=== PATIENT | female | born 1935 | race Caucasian/White ===

== ENCOUNTER 2016-12-06 14:04 | Inpatient (IN) ==
--- NOTE | 2016-12-06 15:15 | EKG Report ---
Test Performed on : 12/06/2016 2:35:07 PM Test Reason : CAD Blood Pressure : / mmHG Vent. Rate : 090 BPM Atrial Rate : 277 BPM P-R Int : 000 ms QRS Dur : 084 ms QT Int : 376 ms P-R-T Axes : 000 012 141 degrees QTc Int : 459 ms Atrial fibrillation. Moderate voltage criteria for LVH, may be normal variant ST \T\ T wave abnormality, consider lateral ischemia Abnormal ECG When compared with ECG of 25-NOV-2016 11:44, Significant changes have occurred Unconfirmed Result
--- NOTE | 2016-12-06 15:31 | Diag Imaging Result Doc PS360 ---
CHEST-1 VIEW - 12/06/2016 INDICATION: fall TECHNIQUE: COMPARISON: 11/25/2016 FINDINGS: The lungs are normally expanded and clear. Heart size and mediastinal contours are normal. No pneumothorax or pleural effusion. IMPRESSION: Negative exam. Electronically signed by Karri Smith 12/06/2016 3:28 PM
--- NOTE | 2016-12-06 15:36 | ED EKG INTERP ---
This chart was entered by Zaida Alcala Scribe, acting as scribe for Dann Li MD. EKG Interpretation - EKG Time of EKG reading by physician:: 14:35 EKG Read and Signed by:: Dann Li EKG Interpretation (*Must complete 3 of following elements*): Abnormal Rate: 90 Rhythm: atrial fibrillation Boyd: normal QRS: LVH (moderate voltage criteria for LVH, may be normal variant) DE Interval: normal ST Wave: non-specific ST changes (ST & T wave abnormality, consider lateral ischemia) Attestation - Physician/ BRAYAN Attestation Patient care was provided by Advanced Practice Provider:: No The physician spent face to face time with patient:: Yes Advanced Practice Provider documentation review:: Supervising physician onsite and consulted in the evaluation and care of this patient. The physician did have a face to face encounter with the patient. This chart was documented by the indicated scribe, (Zaida Alcala Scribe) and accurately reflects the services I performed and decisions made by me, Dann Li MD, as attested by the provider's signature.
[2016-12-06 16:04] LABS: MANUAL DIFF NEEDED? NO
[2016-12-06 16:17] LABS: BASO% 0.2 % (0.0-0.8); EOS# 0.08 X1000 (0.0-0.7); EOS% 0.6 % (0.0-10.0); HEMATOCRIT 42.9 % (37.0-47.0); HEMOGLOBIN 14.8 g/dL (12.0-16.0); IMM GRAN# 0.03 X1000 (0.0-0.04); IMM GRAN% 0.2 % (0.0-0.5); LYMPH# 1.36 X1000 (1.2-3.4); LYMPH% 9.8 % (20.5-51.1); MCH 32.8 PG (27-31); MCHC 34.5 g/dL (33-37); MCV 95.1 FL (81-99); MONO# 1.01 X1000 (0.11-0.59); MONO% 7.3 % (1.7-9.3); MPV 10.9 FL (7.4-10.4); NEUT% 81.9 % (42.2-75.2); PLT 284 X1000 (130-400); RBC 4.51 XMIL (4.2-5.4)
[2016-12-06 17:09] LABS: ALBUMIN 4.3 g/dL (3.5-5.0); CALCIUM 9.7 mg/dL (8.8-10.2); MAGNESIUM 2.2 mg/dL (1.5-2.7); TOTAL BILIRUBIN 0.94 mg/dL (0.20-1.00); TOTAL PROTEIN 7.8 g/dL (6.3-8.3)
--- NOTE | 2016-12-06 17:54 | Diag Imaging Result Doc PS360 ---
EXAM: CT HEAD/C-SPINE W/O CONTRAST INDICATION: Fall TECHNIQUE: Dose reduction protocol was used. COMPARISON: CT head dated 11/25/2016 FINDINGS: Head: There are a few stable chronic lacunar infarcts in the periventricular white matter on the right. There is focal encephalomalacia involving the left occipital lobe, stable. There is no definite acute infarct given the limited sensitivity of CT versus MRI. There is no discrete intracranial mass, mass effect, or intracranial hemorrhage. The surrounding soft tissues are essentially unremarkable. The calvaria is intact. C-spine: There is degenerative facet arthropathy at multiple cervical levels. This causing some degree of foraminal narrowing at multiple levels. The central canal appears to be grossly patent. There are a few small endplate marginal osteophytes. Otherwise, there is no discrete fracture, subluxation, or intrinsic osseous lesion. The surrounding soft tissues are essentially unremarkable. IMPRESSION: 1.Stable chronic changes but no evidence of acute intracranial pathology. 2.Multilevel degenerative arthropathy throughout the cervical spine but no evidence of fracture or other definite acute C-spine injury. Electronically signed by Chu Patel 12/06/2016 5:52 PM
[2016-12-06] MEDS ORDERED: NS 1,000 ML IV ONE (19:44)
[2016-12-06] MEDS ORDERED: LEVAQUIN 750 MG/D5W 750 MG/150 ML IVPB IV ONE (19:52)
[2016-12-06 20:31] LABS: URINE SOURCE CATH
[2016-12-06 20:44] LABS: BILIRUBIN URINE NEGATIVE (NEGATIVE); BLOOD URINE NEGATIVE (NEGATIVE); COLOR YELLOW; GLUCOSE URINE NEGATIVE (NEGATIVE); LEUKOCYTES URINE LARGE (NEGATIVE); NITRITE URINE NEGATIVE (NEGATIVE); PH URINE 5.5; PROTEIN URINE TRACE mg/dL (NEGATIVE); SP GRAVITY URINE 1.016; TURBIDITY URINE HAZY (CLEAR); UROBILINOGEN URINE NORMAL (NORMAL)
[2016-12-06 20:55] LABS: UR EPITHELIAL CELLS >10 /HPF (<10); URINE BACTERIA NEGATIVE /HPF; URINE MICRO REVIEW NEEDED? YES; URINE RBC <10 /HPF (<10)
[2016-12-06 21:01] LABS: URINE CASTS GRANULAR PRESENT; URINE WBC TNTC /HPF (<10)
--- NOTE | 2016-12-06 22:30 | PROVIDER DOCUMENTATION ---
This chart was entered by Zaida Alcala Scribe, acting as scribe for Jeffrey Flanagan DO. HPI-Neurological Disorder - General Stated Complaint: NOT FEELING GOOD, AMS, DX WITH UTI Time Seen by Provider: 12/06/16 14:15 Source: EMS Allergies/Adverse Reactions: Patient Allergies Allergy/AdvReac Type Severity Reaction Status Date / Time No Known Allergies Allergy Verified 11/25/16 12:08 Home Medications: Home Medication List Medication Instructions Recorded Confirmed Last Taken Type Aspirin 81 mg PO DAILY 03/15/13 12/06/16 12/06/16 History Digoxin [Lanoxin] 125 microgm PO DIRECTED 03/15/13 12/06/16 12/06/16 History Levothyroxine [Synthroid] 50 microgm PO DAILY 03/15/13 12/06/16 12/06/16 History Lisinopril [Zestril] 20 mg PO DAILY 03/15/13 12/06/16 12/06/16 History Metoprolol [Lopressor] 100 mg PO BID 03/15/13 12/06/16 12/05/16 History Warfarin [Coumadin] 2.5 mg PO QPM 03/15/13 12/06/16 12/05/16 History Escitalopram Oxalate [Lexapro] 20 mg PO DAILY 11/25/16 12/06/16 12/06/16 History Furosemide 40 mg PO DIRECTED 11/25/16 12/06/16 12/06/16 History Potassium Chloride [Klor-Con 8] 8 meq PO DIRECTED 11/25/16 12/06/16 12/06/16 History ROSUVAstatin [Crestor] 20 mg PO DAILY 11/25/16 12/06/16 12/05/16 History Spironolactone 25 mg PO DIRECTED 11/25/16 12/06/16 12/06/16 History Meclizine HCl [Antivert] 25 mg PO DIRECTED 12/06/16 12/06/16 12/06/16 History Potassium Chloride 8 meq PO DIRECTED 12/06/16 12/06/16 12/06/16 History - History of Present Illness-Neuro Nature of Presenting Problem: Patient is a 81 year old female who presents in the ED via EMS with complaints of altered mental status. EMS states patient's family called EMS due to patient' s increasing weakness and altered mental status, and states patient fell today in the bathroom. EMS also states the fall was not witnessed, and states patient was in a wheelchair upon their arrival so they are unsure if patient lost consciousness. EMS reports patient was in the ED one week ago and diagnosed with a UTI, and reports family stated patient had completed her antibiotics. EMS also reports patient has a history of a CVA twenty years ago and an [place] but unknown when, and reports patient's family stated patient is normally able to stand with assistance but has been " weight" today. EMS states patient's daughter stated patient has had intermittent episodes over the last three months in which patient "seems catatonic and won't respond to them," and states patient's blood pressure was 96/62 prior to arrival in ED. EMS also states patient's states patient has had a runny nose recently, but states patient "has never had a cold before." Headache Location: denies: frontal, temporal, occipital, parietal, global, other Onset/Duration: reports: unsure Timing: reports: still present Character of Altered Mental Status: reports: disoriented, decreased responsiveness Any recent trauma/injury?: reports: none. denies: minor, major, to head, to neck, other Character of Deficits: reports: decreased ability to stand. denies: new weakness, altered sensation, vision problem/glaucoma, impaired speech, impaired swallowing, decreased ability to walk, falling New weakness or altered sensation location:: reports: none. denies: RUE, RLE, LUE, LLE, right facial, left facial, general (diffuse), ascending, other Cognitive Baseline: alert, oriented x3 Similar Symptoms Previously?: No Recently seen or treated by another doctor?: No Review of Systems - Adult - REVIEW OF SYSTEMS - ADULT Constitutional: reports: no symptoms reported Eyes: reports: no symptoms reported Ears, Nose, Mouth & Throat: reports: no symptoms reported Cardiovascular: reports: no symptoms reported Respiratory: reports: no symptoms reported Gastrointestinal: reports: no symptoms reported Genitourinary: reports: no symptoms reported Musculoskeletal: reports: no symptoms reported Integumentary: reports: no symptoms reported Neurological: reports: see HPI, other (altered mental status) Psychiatric: reports: no symptoms reported Endocrine: reports: no symptoms reported Hematologic/Lymphatic: reports: no symptoms reported Allergic/Immunologic: reports: no symptoms reported All Other Systems: Reviewed and Negative Past History - Adult - PAST MEDICAL HISTORY-ADULT Review of Records: reports: Nursing Assessment Review, Medications Reviewed Major Childhood Illnesses: reports: denies history Cardiovascular: reports: [place] Respiratory: reports: denies history Gastrointestinal: reports: denies history Obstetrical/Gynecological: reports: denies history Genitourinary: reports: denies history Musculoskeletal: reports: denies history Neurological: reports: CVA Psychiatric: reports: denies history Endocrine/Immune: reports: denies history Other Conditions: reports: denies history - PRIOR SURGERIES/PROCEDURES Surgical/Procedure History: reports: cholecystectomy, hysterectomy, BTL, other ( breast bx) - IMMUNIZATION STATUS Childhood Immunizations: See Nurse Assessment Flu Vaccine: See Nurse Assessment - FAMILY HISTORY Family History: reviewed, not pertinent - SOCIAL HISTORY Smoking: denies Substance Use: none/never Alcohol Use Frequency: never Living Situation: family Physical Exam- Neurological - Physical Exam-Neuro Initial Vital Signs Reviewed: Yes General Appearance: alert, no apparent distress Eye Exam: bilateral eye: normal inspection, PERRL, EOMI HENMT: normocephalic/atraumatic, moist mucous membranes Head Injury: no evidence of injury Neck: non-tender, full range of motion, supple, normal inspection Respiratory: chest non-tender, lungs clear, normal breath sounds, no pleuratic chest pain, no respiratory distress, no accessory muscle use Cardiovascular: normal peripheral pulses, regular rate, rhythm, no edema, no gallop, no JVD, no murmur Abdominal Exam: soft, no organomegaly, no pulsatile mass Lymphatic: no adenopathy Extremity: normal range of motion, non-tender, normal gait, normal inspection, no pedal edema, no calf tenderness, normal capillary refill, 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 Exam: normal hearing, PERRL, other (obeys commands) Coordination/Gait: other (obeys commands) Motor/Sensory: no motor deficit, no sensory deficit, no pronator drift, other ( generalized weakness) Neurologic: no motor/sensory deficits, other (generalized weakness) Integumentary: normal color, normal turgor, warm/dry, other Psych/Mental Status: other (oriented to self) - Glascow Coma Scale Best Eye Response: (4) open spontaneously Best Verbal Response: (5) oriented Best Motor Response: (6) obeys commands Total Glascow Score: 15 Progress - PLAN OF CARE/RESULTS Progress/Plan/Lab Results: Vital Signs - 8 hr 12/06/16 14:48 Temperature 98.3 F Pulse Rate 68 Respiratory Rate 17 Blood Pressure 84/30 O2 Sat by Pulse Oximetry 97 Laboratory Results - last 24 hr 12/06/16 12/06/16 12/06/16 15:38 15:38 15:38 WBC 13.88 H RBC 4.51 Hgb 14.8 Hct 42.9 MCV 95.1 MCH 32.8 H MCHC 34.5 RDW Std Deviation 13.7 Plt Count 284 MPV 10.9 H Immature Gran % (Auto) 0.2 Neut % (Auto) 81.9 H Lymph % (Auto) 9.8 L Bath % (Auto) 7.3 Eos % (Auto) 0.6 Baso % (Auto) 0.2 Immature Gran # (Auto) 0.03 Neut # (Auto) 11.37 H Lymph # (Auto) 1.36 Bath # (Auto) 1.01 H Eos # (Auto) 0.08 Baso # (Auto) 0.03 Sodium 140 Potassium 5.0 Chloride 102 Carbon Dioxide 24 L Anion Gap 14 BUN 33 H Creatinine 1.8 H Estimated GFR/1.73 m2 27 BUN/Creatinine Ratio 18 Glucose 115 H POC Glucose Calculated Osmolality 288 Calcium 9.7 Phosphorus 3.9 Magnesium 2.2 Total Bilirubin 0.94 AST 37 H ALT 32 Alkaline Phosphatase 65 Troponin T 0.013 [id number]-C-Ffvnqrcvwwj Pept Total Protein 7.8 Albumin 4.3 Globulin 3.5 Albumin/Globulin Ratio 1.2 Plasma Lactate Urine Source Urine Color Urine Turbidity Urine pH Ur Specific [place] Urine Protein Ur Glucose (Stick) Ur Ketones (Stick) Urine Blood Urine Nitrite Urine Bilirubin Urobilinogen Dipstick Urine Leukocytes Urine WBC (Auto) Urine RBC (Auto) U Epithel Cells (Auto) Urine Bacteria (Auto) Urine Crystals Small Round Cells Urine Casts Urine Yeast-like Cells 12/06/16 12/06/16 12/06/16 15:38 15:59 20:07 WBC RBC Hgb Hct MCV MCH MCHC RDW Std Deviation Plt Count MPV Immature Gran % (Auto) Neut % (Auto) Lymph % (Auto) Bath % (Auto) Eos % (Auto) Baso % (Auto) Immature Gran # (Auto) Neut # (Auto) Lymph # (Auto) Bath # (Auto) Eos # (Auto) Baso # (Auto) Sodium Potassium Chloride Carbon Dioxide Anion Gap BUN Creatinine Estimated GFR/1.73 m2 BUN/Creatinine Ratio Glucose POC Glucose 110 H Calculated Osmolality Calcium Phosphorus Magnesium Total Bilirubin AST ALT Alkaline Phosphatase Troponin T Fmh-D-Vzrcqgmddop Pept Total Protein Albumin Globulin Albumin/Globulin Ratio Plasma Lactate 2.4 H 1.5 Urine Source Urine Color Urine Turbidity Urine pH Ur Specific [place] Urine Protein Ur Glucose (Stick) Ur Ketones (Stick) Urine Blood Urine Nitrite Urine Bilirubin Urobilinogen Dipstick Urine Leukocytes Urine WBC (Auto) Urine RBC (Auto) U Epithel Cells (Auto) Urine Bacteria (Auto) Urine Crystals Small Round Cells Urine Casts Urine Yeast-like Cells 12/06/16 12/06/16 12/06/16 20:07 20:07 20:30 WBC RBC Hgb Hct MCV MCH MCHC RDW Std Deviation Plt Count MPV Immature Gran % (Auto) Neut % (Auto) Lymph % (Auto) Bath % (Auto) Eos % (Auto) Baso % (Auto) Immature Gran # (Auto) Neut # (Auto) Lymph # (Auto) Bath # (Auto) Eos # (Auto) Baso # (Auto) Sodium Potassium Chloride Carbon Dioxide Anion Gap BUN Creatinine Estimated GFR/1.73 m2 BUN/Creatinine Ratio Glucose POC Glucose Calculated Osmolality Calcium Phosphorus Magnesium Total Bilirubin AST ALT Alkaline Phosphatase Troponin T < 0.010 Tar-U-Repwejpssce Pept 4854 H Total Protein Albumin Globulin Albumin/Globulin Ratio Plasma Lactate Urine Source CATH Urine Color YELLOW Urine Turbidity HAZY Urine pH 5.5 Ur Specific [place] 1.016 Urine Protein TRACE A Ur Glucose (Stick) NEGATIVE Ur Ketones (Stick) NEGATIVE Urine Blood NEGATIVE Urine Nitrite NEGATIVE Urine Bilirubin NEGATIVE Urobilinogen Dipstick NORMAL Urine Leukocytes LARGE A Urine WBC (Auto) TNTC A Urine RBC (Auto) <10 U Epithel Cells (Auto) >10 A Urine Bacteria (Auto) NEGATIVE Urine Crystals Not Reportable Small Round Cells Not Reportable Urine Casts GRANULAR PRESENT Urine Yeast-like Cells PRESENT Orders Category Date Time Status CT HEAD/C-SPINE W/O CONTRAST [CT] Stat Exams 12/06/16 14:21 Completed cxr [CHEST-1 VIEW] [RAD] Stat Exams 12/06/16 14:18 Completed BLOOD CULTURE [BLDCUL] Stat Lab 12/06/16 20:04 Results BNP [PRO B-NATRIURETIC PEPTIDE] Stat Lab 12/06/16 20:07 Completed CBC WITH DIFF [HEME] Stat Lab 12/06/16 15:38 Completed COMPREHENSIVE METABOLIC PANEL [CHEM] Stat Lab 12/06/16 15:38 Completed LACTATE, PLASMA [CHEM] Stat Lab 12/06/16 15:38 Completed LACTATE, PLASMA [CHEM] Stat Lab 12/06/16 20:07 Completed MAGNESIUM [CHEM] Stat Lab 12/06/16 15:38 Completed PHOSPHORUS [CHEM] Stat Lab 12/06/16 15:38 Completed TROPONIN T Stat Lab 12/06/16 15:38 Completed TROPONIN T Stat Lab 12/06/16 20:07 Completed URINALYSIS [URINALYSIS] Stat Lab 12/06/16 20:30 Completed URINE CULTURE [RM] Routine Lab 12/06/16 20:32 Received URINE MANUAL MICROSCOPIC [URINALYSIS] Stat Lab 12/06/16 20:30 Completed 0.9% Sodium Chloride Inj [Ns] 1,000 ml Med 12/06/16 19:44 Discontinued IV 999 mls/hr Levofloxacin 750 mg/D5w [Levaquin 750 mg/D5w] Med 12/06/16 19:52 Discontinued 750 mg in 150 ml IV NOW EKG [EKG] Stat Ther 12/06/16 14:18 Draft Spoke with hospitalist and he accepted the patient. Result Diagrams: 12/06/16 15:38 12/06/16 15:38 Departure - Departure Date of Disposition Decision: 12/06/16 Time of Disposition Decision: 22:28 DIAGNOSIS: Sepsis Disposition: ADMITTED INPATIENT 09 Certified Medical Emergency: Emergent Condition: Serious - Critical Care Note This patient required my direct & personal management of CC.: No Attestation - Physician/ BRAYAN Attestation Patient care was provided by Advanced Practice Provider:: No The physician spent face to face time with patient:: Yes Advanced Practice Provider documentation review:: Supervising physician onsite and consulted in the evaluation and care of this patient. The physician did have a face to face encounter with the patient. This chart was documented by the indicated scribe, (Zaida Alcala Scribe) and accurately reflects the services I performed and decisions made by me, Jeffrey Flanagan DO, as attested by the provider's signature.
[2016-12-07] MEDS ORDERED: ZOFRAN IV PRN (00:32)
[2016-12-07] MEDS ORDERED: NS 1,000 ML IV SCH ×2 (00:50→08:24)
[2016-12-07] MEDS ORDERED: CALMOSEPTINE OINTMENT TOP PRN (01:34)
[2016-12-07] MEDS: TYLENOL PO PRN ×2 (02:25→16:33)
[2016-12-07 05:07] LABS: MANUAL DIFF NEEDED? NO
[2016-12-07 05:20] LABS: BASO% 0.1 % (0.0-0.8); EOS# 0.06 X1000 (0.0-0.7); EOS% 0.5 % (0.0-10.0); HEMATOCRIT 35.1 % (37.0-47.0); HEMOGLOBIN 12.1 g/dL (12.0-16.0); IMM GRAN# 0.02 X1000 (0.0-0.04); IMM GRAN% 0.2 % (0.0-0.5); LYMPH# 1.63 X1000 (1.2-3.4); LYMPH% 14.6 % (20.5-51.1); MCH 32.8 PG (27-31); MCHC 34.5 g/dL (33-37); MCV 95.1 FL (81-99); MONO# 1.34 X1000 (0.11-0.59); MPV 10.6 FL (7.4-10.4); NEUT% 72.6 % (42.2-75.2); PLT 202 X1000 (130-400); RBC 3.69 XMIL (4.2-5.4)
[2016-12-07 05:24] LABS: INR 3.15; PROTIME 35.6 Seconds (9.2-11.7)
[2016-12-07 05:32] LABS: ALBUMIN 3.3 g/dL (3.5-5.0); POTASSIUM 4.3 mmol/L (3.5-5.1); TOTAL BILIRUBIN 0.52 mg/dL (0.20-1.00)
[2016-12-07] MEDS: SYNTHROID PO SCH (06:24)
[2016-12-07] MEDS ORDERED: LOPRESSOR PO SCH (09:00)
--- NOTE | 2016-12-07 09:38 | HISTORY AND PHYSICAL ---
CHIEF COMPLAINT: General weakness. HISTORY OF PRESENT ILLNESS: The patient is a 81-year-old female, who has a history of atrial fibrillation, CAD, remote CVA, and questionable Parkinson disease and questionable CHF, presented in the ER via EMS for worsening weakness and altered mental status at home. Per family, for the last 6 months or so, patient has increased weakness and normally, she can sit in a wheelchair for moment and with the help, she can go to the bathroom. But today after her put her up in the wheelchair, and she slumped over for about 35 minutes to 40 minutes or so, and there is simply much worse than her usual status. She was able to mumble some words, but it is hard to understand, and she, herself, could not raise her head. So he called EMS for help. Per EMS, the patient's blood pressure was around 96/62, prior to arrival to the ER. She has been in [facility] ER a week ago for UTI, and was discharged home with Macrobid per family, and she already finished the antibiotic. I could not get much history from the patient. Most of the history is from the and her daughter, and they did not notice that the patient have any fevers, chills, nausea, vomiting, or diarrhea. She most of the times lay in the bed, and she can eat her meals with help, but cannot baths, cannot go to the bathroom on her own, and being in the ER, patient was noted to still be hypotensive. The blood pressure was 84/30, and her first lactic acid was 2.4, and the patient was given fluid, and treated the UTI in the ER. So patient will be admitted in the hospital for further treatment and waiting for the culture results. PAST MEDICAL HISTORY: AFib, CAD, CVA, hypertension, hypothyroidism, hyperlipidemia. PAST SURGICAL HISTORY: Cholecystectomy, hysterectomy, BTL. FAMILY HISTORY: Reviewed, not pertinent. SOCIAL HISTORY: Denies smoking. Denies drinking, and living with her . ALLERGIES: NKDA. HOME MEDICATIONS: Aspirin 81 mg daily, digoxin 125 mcg on Saturday, Saturday, Saturday, and Saturday, Lexapro 20 mg p.o. daily, furosemide 40 mg p.o. Saturday, Saturday, Saturday, Levothyroxine 50 mcg daily, lisinopril 20 mg daily, Antivert 20 mg by mouth Saturday, Saturday, and Saturday, metoprolol 100 mg b.i.d., potassium chloride 8 mEq p.o. on Saturday, Saturday, and Saturday, Crestor 20 mg p.o. daily, spironolactone 20 mg on Saturday, Saturday, and Saturday, Coumadin 2.5 mg p.o. q.p.m. REVIEW OF SYSTEMS: A 10-point review of system obtained. Please refer to HPI for pertinent positives and negatives. PHYSICAL EXAMINATION: VITAL SIGNS: Temperature 98.3 degrees, pulse rate is 68, respiratory rate 17, blood pressure 84/30, O2 sat on 2 L 97%. GENERAL: Well-developed female laying on the bed and arousable, but looks pretty pale and tired. HEENT: Head normocephalic. Eyes - EOMI and PERRLA. Oral mucosa is dry. NECK: No JVD. No carotid bruit. CARDIOVASCULAR: Irregularly, irregular, and no murmur. Normal S1, S2. PULMONARY: Diminished throughout, but overall clear to auscultate auscultation bilaterally. No wheezing. No rales. ABDOMINAL: Soft, nontender, nondistended. Positive bowel sounds. EXTREMITIES: No edema. Pulses present. SKIN: No rash. No cyanosis. NEURO: Alert, awake, and oriented to person. Upper extremities have good strength. Lower extremities seems to have good strength, but the patient cannot follow the commands very well. LABS: WBC 13.88, H and H 14.8 and 42.9, platelet is 284. Chemistry: Sodium 140, potassium 5.0, chloride 102, bicarb 24, BUN 33, creatinine 1.8. Glucose 115. Liver enzymes: Within normal limits. Troponin within normal limits. Lactic acid first value 2.4. The repeat values in four hours is 1.5. BNP 4854. UA shows gravity is 1.016, and large leukocyte, less than 10 RBC, more than 10 epithelial cells. EKG shows atrial fibrillation. Heart rate 90, no ST-T abnormalities. Chest x-ray: No acute findings. Head CT: Stable chronic changes, but no evidence of acute intracranial pathology. Multilevel degenerative arthropathy throughout the cervical spine, but no evidence of fracture or other definite acute C-spine injury. ASSESSMENT AND PLAN: 1. Urinary tract infection. 2. Altered mental status. 3. General weakness. 4. Hypotension. 5. Atrial fibrillation. Given the patient's presentation, I think likely her mental status change is probably a little worsening than her baseline and likely reason is probably from their UTI, and we are going to admit the patient and give her hydration, monitor her blood pressure, and continued antibiotics treating for UTI and follow on urine culture and blood culture. We also consulted PT and to assist the patient, and to evaluate and assess the patient to see whether she is a good candidate for some rehab. We will resume her other medicines, and to treat atrial fibrillation, hypothyroidism, and cholesterol. cc: MD Kike Petty Jr, MD
[2016-12-07] MEDS: CRESTOR PO SCH (10:01)
[2016-12-07] MEDS: ASPIRIN PO SCH (10:01)
[2016-12-07] MEDS: NS 1,000 ML IV SCH ×2 (10:01→22:15)
[2016-12-07] MEDS: LEXAPRO PO SCH (10:01)
[2016-12-07] MEDS: LANOXIN PO SCH (10:01)
[2016-12-07] MEDS: LEVAQUIN 250 MG/D5W 250 MG/50 ML IVPB IV SCH (10:10)
--- NOTE | 2016-12-07 19:01 | PROGRESS NOTE ---
DATE: 12/07/2016 SUBJECTIVE: A 81-year-old white female, was admitted to the hospital last night for altered mental status, hypotension, urinary tract infection and azotemia. The patient also had a fall and sustained bruises on the right knee. The patient was examined at the bedside with . According to him, she is bedridden pretty much. She was seen in the emergency room a week ago. Sent home on antibiotics. The patient is not able to ambulate bedridden from the previous stroke. REVIEW OF SYSTEMS: None reported and the patient is also demented. PAST MEDICAL HISTORY: Reviewed. PAST SURGICAL HISTORY: Reviewed. MEDICATIONS: Medicines were reviewed. PHYSICAL EXAMINATION: Vital Signs: Afebrile. Vitals are stable. 2 L nasal cannula 98%. HEENT: Examination within normal limits. Neck: Supple. Chest is clear. Heart sounds irregular. Abdomen: Belly is soft. Midline abdominal scar present. In diapers. No skin breaks over the sacral area. Extremities: No peripheral edema. Extremities: Skin bruises noted over both knees. Neurologic: No obvious neurological deficits. INVESTIGATIONS: CBC: White cell count 11, hematocrit 35, platelets 202,000. PT 35, INR 3.15, SMA 7, sodium 140, potassium 4.3, chloride 106, BUN 39, creatinine 2.0. Glucose 98. LFTs were normal. Microbiology: Urine cultures so far negative. Blood cultures are negative. ASSESSMENT AND PLAN: 1. Altered mental status due to metabolic encephalopathy. 2. Chronic atrial fibrillation and currently on Lanoxin. 3. Atrial Fibrillation metoprolol 100 p.o. b.i.d., lisinopril 20 daily. 4. Hypotension. We will hold the lisinopril and metoprolol. Continue IV fluids. Follow up on SMA 7. 5. Hypothyroidism on Synthroid. 6. Hyperlipidemia, on Crestor. Reactive depression on Lexapro. 7. Urinary tract infection on IV Levaquin 250 once daily. 8. Follow up on the laboratory workup in the morning. Discussed with the patient's at bedside. LEVEL OF DOCUMENTATION: Thirty-five minutes. cc: MD Kike Caruso Jr, MD MTDD
[2016-12-07] MEDS ORDERED: COUMADIN PO SCH (21:00)
[2016-12-08 05:52] LABS: HEMATOCRIT 31.5 % (37.0-47.0); HEMOGLOBIN 10.8 g/dL (12.0-16.0); MCH 33.5 PG (27-31); MCHC 34.3 g/dL (33-37); MCV 97.8 FL (81-99); MPV 10.7 FL (7.4-10.4); RBC 3.22 XMIL (4.2-5.4)
[2016-12-08 06:17] LABS: CALCIUM 8.9 mg/dL (8.8-10.2); POTASSIUM 4.2 mmol/L (3.5-5.1)
[2016-12-08] MEDS: SYNTHROID PO SCH (06:29)
[2016-12-08] MEDS: CRESTOR PO SCH (09:16)
[2016-12-08] MEDS: ASPIRIN PO SCH (09:16)
[2016-12-08] MEDS: LEVAQUIN 250 MG/D5W 250 MG/50 ML IVPB IV SCH (09:16)
[2016-12-08] MEDS: LEXAPRO PO SCH (09:16)
[2016-12-08] MEDS: NS 1,000 ML IV SCH ×2 (09:16→21:46)
[2016-12-08] MEDS: DIFLUCAN 100 MG/NS 100 MG/50 ML IVPB IV SCH (16:25)
--- NOTE | 2016-12-08 18:09 | PROGRESS NOTE ---
DATE: 12/08/2016 SUBJECTIVE: Ms. Odell 81-year-old white female patient admitted with altered mental status gradually decline in her health. The patient found to have UTI. The patient does have complex medical problems in the form of atrial fibrillation, coronary artery disease, CVA, hypertension, hypothyroidism and hyperlipidemia. Patient overall health was declining. As per family she had increasing weakness. She had recent UTI. Her oral intake was poor at home. Patient was hypotensive, brought to emergency room. Evaluated by ER physician. Admitted for further care. Her initial history, physical noted. OBJECTIVE: Vital signs: The patient vital signs reviewed. Neck: Supple. No JVD. Lungs: Bibasilar crepitation. Heart: S1 and S2 heard. Abdomen: Soft, globular. Bowel sounds present. ADMINISTRATIVE SALES ASSISTANT: Alert, awake. Uncooperative for detailed neurologic examination. LABORATORY DATA: Noted. Hemoglobin today was 10.8, hematocrit 31.5, platelet count 179,000, WBC count 8.92. Electrolytes fairly benign. BUN 26, creatinine 1.3. Patient's urine culture grew yeast. CT scan of the brain and cervical spine results reviewed. Her chest x-ray did not reveal any evidence of fluid overload. CONSIDERATION: UTI, acute kidney injury, altered mental status most likely metabolic encephalopathy, anemia of chronic disease, history of coronary artery disease, chronic atrial fibrillation, hypothyroidism on Synthroid. PLAN: Will continue current treatment. I am going to start the patient on Diflucan. Continue rest of the treatment. Physical therapy. Close observation. We will monitor her lab. Overall plan discussed at length with the patient and he is in agreement. cc: MD Kike Fernandez Jr, MD
[2016-12-09 05:37] LABS: HEMATOCRIT 31.1 % (37.0-47.0); HEMOGLOBIN 10.8 g/dL (12.0-16.0); MCH 33.9 PG (27-31); MCHC 34.7 g/dL (33-37); MCV 97.5 FL (81-99); MPV 10.7 FL (7.4-10.4); RBC 3.19 XMIL (4.2-5.4)
[2016-12-09 05:53] LABS: ALBUMIN 3.1 g/dL (3.5-5.0); CALCIUM 8.8 mg/dL (8.8-10.2); MAGNESIUM 1.6 mg/dL (1.5-2.7); POTASSIUM 3.9 mmol/L (3.5-5.1); TOTAL BILIRUBIN 0.72 mg/dL (0.20-1.00); TOTAL PROTEIN 5.6 g/dL (6.3-8.3)
[2016-12-09 06:00] LABS: INR 1.76; PROTIME 19.2 Seconds (9.2-11.7)
[2016-12-09] MEDS: SYNTHROID PO SCH (06:21)
[2016-12-09] MEDS: ASPIRIN PO SCH (09:31)
[2016-12-09] MEDS: LANOXIN PO SCH (09:31)
[2016-12-09] MEDS: LEXAPRO PO SCH (09:31)
[2016-12-09] MEDS: D5W + KCL 20 MEQ 1,000 ML IV SCH (10:00)
--- NOTE | 2016-12-09 15:43 | PROGRESS NOTE ---
DATE: 12/09/2016 SUBJECTIVE: Ms. Odell is doing fair. Oral intake is good. No fever or chills. No dysuria. No unusual cough or expectoration. The patient's urine grew yeast. I started her on Diflucan. I am holding her Crestor. We also stopped her Levaquin. No nausea or vomiting. ProTime was subtherapeutic. Going to increase Coumadin to 3 mg. OBJECTIVE: Vital signs: Noted. Neck: Supple. No JVD. Lungs: Bibasilar crepitations. Heart: S1 and S2 heard. Irregularly irregular. Abdomen: Soft, globular. Bowel sounds present. Extremities: Patient does have bruise mandie above the knee. 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 CONSIDERATION: Patient admitted with altered mental status and to have a UTI. She does have atrial fibrillation, anemia of chronic disease, coronary artery disease, hypothyroidism on Synthroid. PLAN: Overall plan discussed with the and he is in agreement. cc: MD Kike Fernandez Jr, MD
[2016-12-09] MEDS: DIFLUCAN 100 MG/NS 100 MG/50 ML IVPB IV SCH (16:11)
[2016-12-09] MEDS: COUMADIN PO SCH (20:42)
[2016-12-10] MEDS: D5W + KCL 20 MEQ 1,000 ML IV SCH ×3 (04:23→22:44)
[2016-12-10 05:09] LABS: HEMATOCRIT 32.4 % (37.0-47.0); HEMOGLOBIN 11.3 g/dL (12.0-16.0); MCH 33.7 PG (27-31); MCHC 34.9 g/dL (33-37); MCV 96.7 FL (81-99); MPV 10.6 FL (7.4-10.4); RBC 3.35 XMIL (4.2-5.4)
[2016-12-10 05:41] LABS: CALCIUM 9.1 mg/dL (8.8-10.2); POTASSIUM 3.9 mmol/L (3.5-5.1)
[2016-12-10] MEDS: SYNTHROID PO SCH (06:02)
[2016-12-10] MEDS: LEXAPRO PO SCH (08:19)
[2016-12-10] MEDS: ASPIRIN PO SCH (08:20)
[2016-12-10] MEDS: LANOXIN PO SCH (08:20)
--- NOTE | 2016-12-10 12:20 | PROGRESS NOTE ---
DATE: 12/10/2016 SUBJECTIVE: The patient says she still feels very weak. She is better than what she was previously but feels very tired. Blood pressure is better at 116/76, respirations 12, pulse 78, temp 98.1 degrees Fahrenheit, oxygen saturations 99%. When she first came in she was hypotensive with a blood pressure of 84/30. She did not running any fever during this time. Her white count was initially 13,880. White count today is 8,790. Creatinine initially was 1.8 and then on 12/07 went up to 2.0 with a BUN of 39. Her creatinine is better at 1.0 with a BUN of 14. Urinalysis showed WBCs too numerous to count. Her urine culture grew out yeast. She had been on Macrobid for a UTI prior to coming in the hospital and just did not get better. Her urine had grown E. coli and it was sensitive to all antibiotics tested, this is on 11/25/2016, and then the culture for this admission showed yeast. She is now on Diflucan 100 mg IV q.24 hours. She also has atrial fibrillation, hypothyroidism. OBJECTIVE: Vital signs: Blood pressure is much better 116/76, respirations 12, pulse 78, temp 98.1 degrees Fahrenheit. HEENT: Patient is normocephalic. EOMs intact. PERRLA. Throat clear. Lungs: Clear to auscultation and percussion without rhonchi, rales, or wheezes. Heart: Irregularly irregular without murmurs, gallops, or friction rubs. Abdomen: Soft. Active bowel sounds. No organomegaly or tenderness. Neurologic: Intact grossly. The patient looks very tired. Patient appears very weak. At this time she does not feel like she can make it at home. Physical therapy has come by once and that was 2 days ago. We will continue IV fluids. Have physical therapy today. We will get another urinalysis and check lab work again in the morning. Will try to get her stronger to go home. Certainly there has been improvement but she is not back to baseline. Blood cultures have been negative. ASSESSMENT: 1. Hypotension. 2. Urinary tract infection from yeast. 3. Atrial fibrillation. 4. Acute kidney injury, that improved. PLAN: Will. Give fluids as above and get physical therapy to see her. Will recheck lab. cc: Kike De Jesus Jr, MD
[2016-12-10 13:03] LABS: URINE SOURCE CATH
[2016-12-10 13:21] LABS: BILIRUBIN URINE NEGATIVE (NEGATIVE); BLOOD URINE NEGATIVE (NEGATIVE); COLOR YELLOW; GLUCOSE URINE NEGATIVE (NEGATIVE); LEUKOCYTES URINE LARGE (NEGATIVE); NITRITE URINE NEGATIVE (NEGATIVE); PH URINE 5.5; PROTEIN URINE NEGATIVE (NEGATIVE); SP GRAVITY URINE 1.003; TURBIDITY URINE HAZY (CLEAR); UROBILINOGEN URINE NORMAL (NORMAL)
[2016-12-10 13:23] LABS: UR EPITHELIAL CELLS <10 /HPF (<10); URINE BACTERIA 1+ /HPF; URINE CULTURE NEEDED? YES; URINE MICRO REVIEW NEEDED? YES; URINE RBC <10 /HPF (<10); URINE WBC TNTC /HPF (<10)
[2016-12-10 13:35] LABS: URINE CASTS NONE SEEN; URINE CRYSTALS NONE SEEN; URINE SMALL ROUND CELLS NONE SEEN
[2016-12-10] MEDS: TYLENOL PO PRN ×2 (15:32→22:43)
[2016-12-10] MEDS: DIFLUCAN 100 MG/NS 100 MG/50 ML IVPB IV SCH (16:06)
[2016-12-10] MEDS: COUMADIN PO SCH (22:06)
[2016-12-11] MEDS: D5W + KCL 20 MEQ 1,000 ML IV SCH ×2 (04:06→22:00)
[2016-12-11 06:48] LABS: MANUAL DIFF NEEDED? NO
[2016-12-11 06:50] LABS: BASO% 0.3 % (0.0-0.8); EOS# 0.32 X1000 (0.0-0.7); EOS% 4.7 % (0.0-10.0); HEMATOCRIT 33.6 % (37.0-47.0); HEMOGLOBIN 11.6 g/dL (12.0-16.0); IMM GRAN# 0.02 X1000 (0.0-0.04); IMM GRAN% 0.3 % (0.0-0.5); LYMPH# 1.35 X1000 (1.2-3.4); LYMPH% 19.7 % (20.5-51.1); MCH 33.2 PG (27-31); MCHC 34.5 g/dL (33-37); MCV 96.3 FL (81-99); MONO# 1.13 X1000 (0.11-0.59); MONO% 16.5 % (1.7-9.3); MPV 10.5 FL (7.4-10.4); NEUT% 58.5 % (42.2-75.2); PLT 161 X1000 (130-400); RBC 3.49 XMIL (4.2-5.4)
[2016-12-11] MEDS: SYNTHROID PO SCH (06:52)
[2016-12-11 07:09] LABS: CALCIUM 9.1 mg/dL (8.8-10.2); POTASSIUM 4.3 mmol/L (3.5-5.1)
[2016-12-11] MEDS: LANOXIN PO SCH (08:13)
[2016-12-11] MEDS: LEXAPRO PO SCH (08:13)
[2016-12-11] MEDS: ASPIRIN PO SCH (08:14)
--- NOTE | 2016-12-11 09:31 | PROGRESS NOTE ---
DATE: 12/11/2016 SUBJECTIVE: The patient has altered mental status. When I came in, the nurse was already working with her. She was not responding at that time. She said it had been going on for about 45 minutes, and she tried to sternal rub without much success. I checked her blood pressure which was stable. Checked a blood sugar which was 89. The patient initially did not want to talk with me. I finally used the sternal rub, and she did wake up with that on her examination. She did not want to talk, but finally did talk slightly, seems weak on the right side of her body. Had a stroke about 18 years ago with weakness on the left side of her body. OBJECTIVE: Vital signs: Blood pressure 126/63, respirations 16, pulse 61, temp 97.4 degrees Fahrenheit, O2 saturation was 99% on room air. HEENT: She has a little bit of a facial droop on the left side. She would not answer me about sensation on the left side versus the right side, when I tried to test her. Neck: Supple. Lungs: Clear to auscultation and percussion without rhonchi, rales, or wheezes. Heart: Irregularly irregular without murmurs, gallops, or friction rubs. Abdomen: Soft with active bowel sounds. No organomegaly or tenderness. Neurological: As above. 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 She has upgoing toes bilaterally. LABORATORY DATA: Her last INR was a little low at 1.76 on 12/09, before that, it was 3.15. Her urine still showed WBCs too numerous to count. We are awaiting cultures again. ASSESSMENT: 1. Hypotension, now resolved. 2. Urinary tract infection apparently from yeast, but has not responded yet to Diflucan. 3. Atrial fibrillation. 4. Acute kidney injury, improved. 5. Altered mental status with weakness on the right side consistent with possible cerebrovascular accident. PLAN: We will get neurological consultation. Will get CT scan of the head. Please see orders. cc: Kike De Jesus Jr, MD
[2016-12-11 09:53] LABS: PROTIME 33.8 Seconds (9.2-11.7)
--- NOTE | 2016-12-11 10:05 | Diag Imaging Result Doc PS360 ---
EXAM: CT HEAD W/O CONTRAST - 12/11/2016 HISTORY: poss stroke TECHNIQUE: Low-dose protocol COMPARISON: 12/06/2016 FINDINGS: There are atrophic changes similar to the previous exam. There are chronic ischemic changes, including old infarcts at the right periventricular/posterior basal ganglia region and left occipital lobe, similar to the previous exam there is no indication of recent infarct, although acute infarcts may not be immediately visible. There is no evidence of hemorrhage, mass effect, or midline shift. IMPRESSION: Stable exam compared to 12/06/2016. Atrophic changes and chronic ischemic changes. No visible acute intracranial abnormality. Electronically signed by Domingo Fisher 12/11/2016 10:03 AM
--- NOTE | 2016-12-11 11:57 | CONSULTATION ---
DATE OF CONSULTATION: 12/11/2016 REASON FOR CONSULTATION: Acute mental status change. Possible stroke. HISTORY OF PRESENT ILLNESS: This is a 81-year-old I believe right-handed female with history of remote stroke, atrial fibrillation on Coumadin, coronary disease and possible dementia, who has been admitted for a few days now for generalized weakness and urinary tract infection. History is from chart review and discussion with the . The patient is nonambulatory at baseline. She is able to sit in a wheelchair with some assistance and can go to the bathroom. Sometimes she sleeps all day and the doesn't try to wake her but will check on her intermittently. She was hypotensive with a blood pressure of 96/62; another one at one point was 84/30 and this was when she had come into the hospital. She is being treated for urinary tract infection from yeast with Diflucan. A second urine culture is pending. She also had acute kidney injury which has improved. Her INR was subtherapeutic on her home dose of Coumadin; therefore this was increased during her stay. This morning's INR was 3.0. says 18 years ago she had an acute stroke with left hemiplegia which resolved after getting the "clot busting" agent in the ED. She had no residuals. About 8-10 years ago she had a smaller stroke but he cannot recall any details. She had a mild heart attack while at rehab for this. This morning the nurse came in to give the patient her medications and found her poorly responsive. She tried several maneuvers to get the patient to respond, but none of this was successful. This did include deep sternal rub. Her blood pressure was stable. Her blood sugar was 89. Eventually the patient was able to wake up and finally did talk slightly, but there was some concern about some weakness possibly on the right side of her body. She was sent for a head CT that did not show any acute findings. PAST MEDICAL HISTORY: Remote stroke, Atrial fibrillation on Coumadin, coronary artery disease, hypertension, hyperlipidemia, hypothyroidism, cholecystectomy, hysterectomy, BTL. FAMILY HISTORY: noncontributory SOCIAL HISTORY: no smoking or alcohol. She lives with her . Immobile. ALLERGIES: No known drug allergies. HOME MEDICATIONS: Reviewed. She takes aspirin 81 mg daily as well as Coumadin. She was taking 2.5 mg p.o. q.p.m. amongst others. Currently her Coumadin dose is 3 mg p.o. q.p.m. and she is on Diflucan and Lexapro. REVIEW OF SYSTEMS: Unable to be obtained due to the patient's mental status. PHYSICAL EXAMINATION: Vital Signs: Afebrile, blood pressure 126/63, pulse 61, respirations 16, 99% on room air. General: Elderly female, supine in bed with eyes closed. HEENT: Unremarkable with the exception of some slight nasolabial fold flattening on the left. Neck: Supple. No meningismus. Trachea midline. Cardiovascular: Intact distal pulses. No significant edema. Lungs: No increased work of breathing. Normal chest rise and expansion. No audible wheezes. Abdomen: Soft, nondistended, nontender. Extremities: Well perfused. Warm. No clubbing or cyanosis. No significant edema. Neurological exam: Mental status: She is lying supine with eyes closed. She does not respond to voice, although she does respond to some very mild tactile stimulation over the sternum with fingertips only. She opens her eyes, regards, is briefly attentive before closing her eyes again, seemingly drifting to sleep. She does not answer orientation questions at all for the most part, although on one occasion she says, "I am above" when asked where she is. She also says 3 complete sentences during my examination in response to the exam. During one attentive period, she has her eyes open and looks to the left and to the right on command. Cranial nerves: Her pupils are 5-6 mm OU. I am unable to test reactivity as the patient is very persistently and actively resisting. Gaze is conjugate. Again, ocular movements full in horizontal directions. There is a slight flattening of the left nasolabial fold. Motor exam: She is at least against gravity in both upper extremities. She maintains her arms in the air when placed there. She flexes both upper extremities against some resistance. Will not metallurgical tester hands on command. Lower extremities appear pretty symmetric with regards to strength there. She may more vigorously respond to sensory stimulation in the right leg compared to the left, but responds in both overall. Reflexes are symmetrically reduced, absent ankle jerks. Positive Babinski on the left; mute on the right. No clonus. Could not test coordination as she is not attentive. Could not test gait for the same reason. DIAGNOSTICS: Noncontrasted head CT this morning was personally reviewed and does not show any acute findings. There is no hemorrhage. There are some areas of encephalomalacia within the right basal ganglia, as well as some hypo density periventricularly on the right. She also has an old small left occipital area of encephalomalacia. Lab work: Urine showing too many to count white blood cells. Cultures are pending. An INR was 1.76 a couple of days ago , but 3 this morning. Other labs reviewed. ASSESSMENT AND PLAN: A 81-year-old, right-handed female with multiple vascular risk factors who is admitted with worsening generalized weakness as well as urinary tract infection. Now with mental status change acutely this morning. 1. Acute mental status change with report of possible right sided weakness. There has been apparent improvement from documented earlier exams to my exam at this time. I am not seeing definite right sided focal weakness. Her mental status continues to be an issue, though it too seems to be improved compared to earlier exams. The cause of this is not certain at this time, though agree with evaluating for stroke/TIA given her risk factors and would also consider the possibility of seizure given the acute change. Head CT was unrevealing; there is no hemorrhage. I will order noncontrasted MRI of the brain, as well as a routine EEG for further evaluation. I would maintain adequate hydration and blood pressure as you are doing. Continue medications for secondary stroke prevention as is being done. Thank you for this consultation. We will follow. cc: MD Kike Cardona Jr, MD MTDD
--- NOTE | 2016-12-11 14:39 | EEG REPORT ---
DATE: 12/11/2016 REFERRING PHYSICIANS: Dr. Humphries, Dr. De Jesus. EEG #: [id number]. EMAIL MARKETING MANAGER: Radha Sage. BACKGROUND INFORMATION TECHNIQUE: A digitally recorded EEG is obtained with 1 additional channel for EKG. HISTORY OF PRESENT ILLNESS: A 81-year-old female with history of stroke, coronary disease, atrial fibrillation, admitted with generalized weakness and urinary tract infection. Now with acute mental status change and possible right-sided weakness. An EEG is ordered to detect evidence of seizure. MEDICATIONS: Include: Aspirin, Coumadin, Diflucan, digoxin, Lexapro, Synthroid. EEG FINDINGS: A posterior dominant alpha rhythm is notably absent. The background consists of mixed theta delta slowing with some admixed faster frequencies. No focal slowing. No epileptiform discharges. No seizures. Hyperventilation was not performed. Photic stimulation induced a normal photic driving response. Drowsiness is seen but stage 2 sleep is not achieved. EKG demonstrates irregular RR intervals. There were a couple of intervals that were just over 2 seconds in duration between the complexes. IMPRESSION AND CLINICAL CORRELATION: Abnormal routine EEG due to: 1. Moderately severe generalized background slowing indicative of a moderately severe encephalopathy. Generalized slowing is a nonspecific finding that can be seen in processes that diffusely affect the cerebrum, including toxic, metabolic, pharmacologic, post hypoxic and infectious etiologies. 2. Irregular RR intervals on the EKG lead. A couple of intervals were just over 2 seconds in duration between the complexes. No epileptiform discharges and no seizures are seen on the current study. This does not rule out an underlying seizure disorder. Clinical correlation is advised. cc: MD Kike Cardona Jr, MD MTDD
--- NOTE | 2016-12-11 14:50 | Diag Imaging Result Doc PS360 ---
MRI BRAIN W/O CONTRAST - 12/11/2016 INDICATION: acute mental status change; r/o stroke COMPARISON: Head CT 12/11/2016, 12/06/2016, 11/25/2016 FINDINGS: There is no area of restricted diffusion. The ventricles and sulci are grossly normal. Stable moderate periventricular white matter lucencies compatible with chronic microvascular disease. There are also small lacunar is at the basal ganglia stable from prior. There is a small extra-axial, dural based mass at the anterior right sunny. This measures 14 x 8 mm maximally. There is clearly a dural tail on a few of the sequences. This does not quite contact the sunny although it does come close. On the CT, there is some mild hyperostosis of the skull in this region further supporting a meningioma. This is slightly hyperintense to brain but nearly isointense. Midline structures are normal. IMPRESSION: 1. 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 2. Chronic microvascular disease of the cerebral white matter. Electronically signed by Karri Smith 12/11/2016 2:48 PM
[2016-12-11] MEDS: DIFLUCAN 100 MG/NS 100 MG/50 ML IVPB IV SCH (16:38)
[2016-12-11] MEDS: COUMADIN PO SCH (22:00)
[2016-12-12] MEDS: SYNTHROID PO SCH (06:26)
[2016-12-12 06:46] LABS: MANUAL DIFF NEEDED? NO
[2016-12-12 06:52] LABS: BASO% 0.5 % (0.0-0.8); EOS# 0.34 X1000 (0.0-0.7); EOS% 5.1 % (0.0-10.0); HEMATOCRIT 36.7 % (37.0-47.0); HEMOGLOBIN 12.6 g/dL (12.0-16.0); LYMPH# 1.12 X1000 (1.2-3.4); LYMPH% 16.8 % (20.5-51.1); MCH 32.8 PG (27-31); MCHC 34.3 g/dL (33-37); MCV 95.6 FL (81-99); MONO% 13.5 % (1.7-9.3); MPV 10.4 FL (7.4-10.4); NEUT% 64.1 % (42.2-75.2); PLT 189 X1000 (130-400); RBC 3.84 XMIL (4.2-5.4)
[2016-12-12 07:25] LABS: CALCIUM 9.7 mg/dL (8.8-10.2); POTASSIUM 4.7 mmol/L (3.5-5.1)
[2016-12-12] MEDS: LEXAPRO PO SCH (09:08)
[2016-12-12] MEDS: ASPIRIN PO SCH (09:08)
--- NOTE | 2016-12-12 09:29 | PROGRESS NOTE ---
DATE: 12/12/2016 SUBJECTIVE: The patient says she is feeling a little better. Has no complaints. She is more alert. She is not agitated. OBJECTIVE: Vital Signs: Blood pressure 118/57, respirations 20, pulse 60, temp 97.9 degrees Fahrenheit. HEENT: She is normocephalic, intact PERRLA. Throat clear. Lungs: Clear to auscultation and percussion without rhonchi, rales, or wheezes. Heart: Irregularly irregular without murmurs, gallops, or friction rubs. Abdomen: Soft. Active bowel sounds. No organomegaly or tenderness. Neurological: Patient does not have the weakness in her right upper extremity that she had yesterday when I checked her. She is more appropriate with her speech. She is alert but looks tired. Yesterday she was unresponsive for part of the time and then later in the day she became a little combative and was trying to take a swing at one of the nurses. That altered mental status seems to be improved at this point and her right-sided weakness seems to have resolved. Most likely, this represents a TIA. Her MRI scan shows no acute changes. Her EEG shows generalized encephalopathy. LABS: Urine culture is still pending. ASSESSMENT: 1. Altered mental status. 2. Urinary tract infection. 3. Probable TIA. 4. Chronic atrial fibrillation. INR is 3.0. PLAN: We will get an echocardiogram. The patient is anticoagulated. We will continue to watch. Await new culture report results. Appreciate help from Dr. Humphries. cc: Kike De Jesus Jr, MD
[2016-12-12] MEDS: TYLENOL PO PRN ×2 (09:50→19:37)
[2016-12-12 10:07] LABS: INR 5.48; PROTIME 64.2 Seconds (9.2-11.7)
[2016-12-12] MEDS: D5W + KCL 20 MEQ 1,000 ML IV SCH ×2 (15:55→19:34)
[2016-12-12] MEDS: DIFLUCAN 100 MG/NS 100 MG/50 ML IVPB IV SCH (15:55)
[2016-12-12] MEDS: COUMADIN PO SCH (19:39)
[2016-12-13] MEDS: COUMADIN PO SCH (01:01)
[2016-12-13] MEDS: SYNTHROID PO SCH (06:38)
[2016-12-13 07:30] LABS: MANUAL DIFF NEEDED? NO
[2016-12-13 07:36] LABS: BASO% 0.5 % (0.0-0.8); EOS# 0.27 X1000 (0.0-0.7); EOS% 4.7 % (0.0-10.0); HEMATOCRIT 34.5 % (37.0-47.0); HEMOGLOBIN 11.8 g/dL (12.0-16.0); LYMPH# 1.36 X1000 (1.2-3.4); LYMPH% 23.5 % (20.5-51.1); MCH 32.8 PG (27-31); MCHC 34.2 g/dL (33-37); MCV 95.8 FL (81-99); MONO# 0.78 X1000 (0.11-0.59); MONO% 13.5 % (1.7-9.3); MPV 10.8 FL (7.4-10.4); NEUT% 57.8 % (42.2-75.2); PLT 205 X1000 (130-400)
[2016-12-13 07:54] LABS: INR 6.18; PROTIME 72.9 Seconds (9.2-11.7)
[2016-12-13 08:04] LABS: CALCIUM 9.3 mg/dL (8.8-10.2); POTASSIUM 4.1 mmol/L (3.5-5.1)
--- NOTE | 2016-12-13 09:02 | PROGRESS NOTE ---
DATE: 12/13/2016 SUBJECTIVE: Patient is feeling better. She started eating better yesterday. She is moving all extremities. OBJECTIVE: Vital Signs: Blood pressure 133/75, respirations 16, pulse 91, temperature 97.6 degrees Fahrenheit. HEENT: She is normocephalic. EOMs intact. PERRLA. Throat clear. Lungs: Clear to auscultation and percussion without rhonchi, rales, or wheezes. Heart: Irregularly irregular without murmurs, gallops, or friction rubs. Abdomen: Soft. Active bowel sounds. No organomegaly or tenderness. Neurological: Intact grossly. No signs of stroke or TIA at this point. Her urine seems to be still growing out yeast. Her INR has risen to 6.18. We will hold her warfarin. Echocardiogram is pending. ASSESSMENT: 1. Altered mental status now improved. 2. Questionable TIA. 3. Urinary tract infection. 4. Atrial fibrillation. 5. Coagulopathy. PLAN: As above. Hold warfarin. Await echocardiogram. cc: Kike De Jesus Jr, MD
[2016-12-13] MEDS: TYLENOL PO PRN ×2 (10:11→18:41)
[2016-12-13] MEDS: LEXAPRO PO SCH (11:12)
[2016-12-13] MEDS: ASPIRIN PO SCH (11:12)
[2016-12-13] MEDS: D5W + KCL 20 MEQ 1,000 ML IV SCH (15:27)
[2016-12-13] MEDS: DIFLUCAN 100 MG/NS 100 MG/50 ML IVPB IV SCH (16:16)
--- NOTE | 2016-12-13 19:14 | ECHO REPORT ---
ORDER DATE: 12/12/2016 INTERPRETING PHYSICIAN: Dr. Torres REQUESTING PHYSICIAN: CLINICAL INDICATIONS: A 81-year-old female with hyperlipidemia, hypothyroidism, stroke, TIA. M-MODE MEASUREMENTS: Right ventricle: 2.2 cm. Left ventricle end diastole: 4.3 cm. Left ventricle end systole: 3.5 cm. Posterior wall: 1.0 cm. Interventricular septum: 1.0 cm. Left atrium: 5.1 cm. Aortic root: 2.8 cm. SUMMARY OF 2-DIMENSIONAL IMAGING: The patient is in persistent atrial fibrillation. This study is technically difficult. The global left ventricular systolic function is moderately to severely impaired. It is visually estimated at 35%. There is akinesis to dyskinesis of the apical lateral wall and the mid to distal anteroseptal segment of the left ventricle, 30-35% is probably the most accurate estimation. The chamber is not significantly dilated. The aortic valve shows sclerosis of the cusps with trace regurgitation. The mitral valve opens normally. Color flow mapping indicates a moderate degree of regurgitation. Pulse wave Doppler of mitral inflow shows a single filling wave. The patient is in atrial fibrillation. The tricuspid valve shows a mild degree of regurgitation. The pulmonary pressure is estimated in her case at 44-49 mmHg. There is no pericardial effusion, masses or thrombus. IMPRESSION: In summary, this study shows: 1. Moderately to severely impaired left ventricular function. Ejection fraction 30-35% with akinesis to dyskinesis of the apical segments of the left ventricle and the anteroseptal segment of the left ventricle. 2. Moderately severe degree of mitral regurgitation with moderate enlargement of the left atrium. 3. The patient is in chronic atrial fibrillation making this study more difficult. 4. Sclerosis of aortic valve without stenosis. 5. Mild to moderate pulmonary hypertension in the order of 44-59 mmHg. Right atrial pressure could not be accurately evaluated because of suboptimal visualization of the inferior vena cava. It did not appear to be massively dilated though. Clinical correlation recommended. cc: MD Kike Crawley Jr, MD
[2016-12-14] MEDS: SYNTHROID PO SCH (06:29)
[2016-12-14] MEDS: LEXAPRO PO SCH ×2 (07:59→11:24)
[2016-12-14] MEDS: ASPIRIN PO SCH ×2 (08:00→11:35)
[2016-12-14] MEDS: LANOXIN PO SCH ×2 (08:02→11:26)
[2016-12-14 10:15] LABS: PROTIME 81.6 Seconds (9.2-11.7)
[2016-12-14 10:16] LABS: INR 6.87
[2016-12-14] MEDS: D5W + KCL 20 MEQ 1,000 ML IV SCH ×3 (11:30→18:45)
[2016-12-14 12:24] LABS: URINE CULTURE NEEDED? NO; URINE MICRO REVIEW NEEDED? NO; URINE SOURCE CATH
[2016-12-14 12:29] LABS: BILIRUBIN URINE NEGATIVE (NEGATIVE); BLOOD URINE NEGATIVE (NEGATIVE); COLOR YELLOW; GLUCOSE URINE NEGATIVE (NEGATIVE); LEUKOCYTES URINE NEGATIVE (NEGATIVE); NITRITE URINE NEGATIVE (NEGATIVE); PROTEIN URINE NEGATIVE (NEGATIVE); SP GRAVITY URINE 1.002; TURBIDITY URINE CLEAR (CLEAR); UROBILINOGEN URINE NORMAL (NORMAL)
[2016-12-14 12:30] LABS: UR EPITHELIAL CELLS <10 /HPF (<10); URINE BACTERIA NEGATIVE /HPF; URINE RBC <10 /HPF (<10); URINE WBC <10 /HPF (<10)
--- NOTE | 2016-12-14 13:16 | PROGRESS NOTE ---
DATE: 12/14/2016 SUBJECTIVE: The patient is unresponsive at this time. Apparently this happens to her on occasion. She does have severe encephalopathy from her previous strokes. This did show up on her EEG. Her reports that she will go a day or 2, sometimes even 3 days without responding or eating. Because of this, we have to worry about possible dehydration. At this time she is not very responsive at all. OBJECTIVE: Vital Signs: Blood pressure 125/76, respirations 16, pulse 88, temperature 98.4 degrees Fahrenheit. HEENT: She is normocephalic. Lungs: Clear to auscultation and percussion without rhonchi, rales, or wheezes. Heart: Irregularly irregular without murmurs, gallops, or friction rubs. Abdomen: Soft. Active bowel sounds. Neuro: She really does not wake up much at all at this time. DIAGNOSTIC DATA: Her urinalysis today is finally clear. Her INR is 6.8 plus so she does have a coagulopathy. This is probably her warfarin plus the Diflucan we used for her yeast bladder infection. ASSESSMENT: 1. Urinary tract infection with yeast now resolved. 2. Encephalopathy. 3. Chronic atrial fibrillation. 4. Multiple cerebrovascular accidents. 5. Coagulopathy with INR of 6.8. 6. Probable transient ischemic attack 2 days ago. 7. The patient also has coronary artery disease and had an ejection fraction of 35%. Apparently had a heart attack about 10 years ago. I do not see signs of heart failure at this time but with her ejection fraction of only 35%, this probably is what makes her tired as well as her encephalopathy. PLAN: Since she is unresponsive for the most part now and she has an elevated INR, I have elected to stop her Diflucan since her urinary tract infection has cleared and hold her warfarin. We will check INRs and pro times and hopefully this will come down and when she wakes up hopefully by Saturday and her INR has come down to a more reasonable amount then we can consider discharge. If her INR goes up she might have to have intervention with vitamin K and fresh frozen plasma, but at this level hopefully it will just come down by withholding the warfarin and withholding the Diflucan which can raise INRs when you are on warfarin. That is why we can also make sure she does not become dehydrated. cc: Kike De Jesus Jr, MD
[2016-12-15] MEDS: SYNTHROID PO SCH (06:52)
[2016-12-15 07:07] LABS: INR 7.97; PROTIME 95.6 Seconds (9.2-11.7)
[2016-12-15 07:11] LABS: CALCIUM 9.8 mg/dL (8.8-10.2); POTASSIUM 4.6 mmol/L (3.5-5.1)
[2016-12-15] MEDS: D5W + KCL 20 MEQ 1,000 ML IV SCH ×2 (07:41→20:11)
[2016-12-15] MEDS: LEXAPRO PO SCH (08:33)
[2016-12-15] MEDS: ASPIRIN PO SCH (08:36)
--- NOTE | 2016-12-15 13:16 | PROGRESS NOTE ---
DATE: 12/15/2016 SUBJECTIVE: The patient is alert and appropriate. She says she is feeling somewhat better. Still feels somewhat tired. She does have encephalopathy. OBJECTIVE: Vital signs: Show blood pressure 126/75, respirations 18, pulse 75, temperature 98.2 degrees Fahrenheit. HEENT: She is normocephalic. EOMs intact PERRLA. Throat clear. Lungs: Clear to auscultation and percussion without rhonchi, rales, or wheezes. Heart: Regular rate rhythm without murmurs, gallops, or friction rubs. Abdomen: Soft. Active bowel sounds. No organomegaly or tenderness. Seems to have better strength on the right side now. LABORATORY: Her INR has gone up a little higher to 7.97 with a PT of 95.6. It was 6.87 yesterday. Her Diflucan and her warfarin have both been discontinued. I am hoping that this will come down on its own but if tomorrow it is still elevated, I may give her some medication to reverse it. It is just harder after I reverse it to get her back to therapeutic with her INR and protime. Rest of lab work is stable. ASSESSMENT: 1. Urinary tract infection from yeast. 2. Transient ischemic attack. 3. Encephalopathy with altered mental status. 4. Chronic atrial fibrillation. 5. Coagulopathy. PLAN: Continue care. She has improved with her mental status this morning. Hopefully her coagulopathy will improve. cc: Kike De Jesus Jr, MD
[2016-12-15] MEDS: TYLENOL PO PRN (20:10)
[2016-12-16] MEDS: SYNTHROID PO SCH (06:30)
[2016-12-16 07:38] LABS: INR 4.73; PROTIME 54.8 Seconds (9.2-11.7)
[2016-12-16 07:40] LABS: CALCIUM 9.3 mg/dL (8.8-10.2); POTASSIUM 4.9 mmol/L (3.5-5.1)
[2016-12-16] MEDS: LEXAPRO PO SCH (09:54)
[2016-12-16] MEDS: LANOXIN PO SCH (09:55)
[2016-12-16] MEDS: ASPIRIN PO SCH (09:57)
[2016-12-16] MEDS: TYLENOL PO PRN ×2 (11:20→17:20)
--- NOTE | 2016-12-16 14:05 | PROGRESS NOTE ---
DATE: 12/16/2016 SUBJECTIVE: The patient says she is feeling better. She does not seem quite as alert today as she did yesterday but she is certainly better than she was 2 days ago. Her altered mental status seems to come and go somewhat. She has no new complaints. OBJECTIVE: INR is down to 4.73, PT is 54.8. We are holding her warfarin.Vital Signs: Blood pressure 113/87, respirations 19, pulse was 141 and then came down to 108, temperature is 97.7 degrees Fahrenheit. HEENT: She is normocephalic, EOM intact, PERRLA. Throat clear. Lungs: Clear to auscultation and percussion without rhonchi, rales or wheezes. Heart: Irregular irregular without murmurs, gallops, friction rubs. Abdomen: Soft. Active bowel sounds. No organomegaly or tenderness. Neurologic: The patient is moving all extremities. Has good strength in her right side now, still little slow with thinking, I think this is from encephalopathy. ASSESSMENT: 1. Urinary tract infection with yeast now cleared. 2. Coagulopathy. 3. Transient ischemic attack. 4. Encephalopathy. 5. Chronic atrial fibrillation. PLAN: Continue treatment. Will check an INR, probably time in the morning, if stable and her altered mental status has remained stable. Will consider discharge. cc: Kike De Jesus Jr, MD
[2016-12-16] MEDS: D5W + KCL 20 MEQ 1,000 ML IV SCH ×2 (18:27→18:28)
[2016-12-17] MEDS: SYNTHROID PO SCH (06:10)
[2016-12-17 06:49] LABS: INR 4.1; PROTIME 47.1 Seconds (9.2-11.7)
[2016-12-17 07:03] LABS: CALCIUM 9.8 mg/dL (8.8-10.2); POTASSIUM 4.6 mmol/L (3.5-5.1)
[2016-12-17 08:17] VITALS: BP 125/76
[2016-12-17] MEDS: LANOXIN PO SCH (08:49)
[2016-12-17] MEDS: LEXAPRO PO SCH (08:50)
[2016-12-17] MEDS: ASPIRIN PO SCH (08:50)
--- NOTE | 2016-12-18 04:38 | DISCHARGE SUMMARY ---
ADMISSION DATE: 12/07/2016 DISCHARGE DATE: 12/17/2016 FINAL DIAGNOSES: 1. Altered mental status. 2. Urinary tract infection with yeast. 3. Hypotension. 4. Transient ischemic attack. 5. Chronic atrial fibrillation. 6. Encephalopathy. 7. Hyperlipidemia. 8. Hypothyroidism. 9. Coagulopathy. DISCHARGE INSTRUCTIONS: Patient will be discharged home on her regular home medicines but she was not to take her warfarin. We will get another INR on her through home health care in the next couple of days and then decide when to restart her warfarin. 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 Came in with altered mental status and hypotension with a systolic blood pressure of 84/30. She had just been treated for a urinary tract infection with antibiotics. Cultures this time grew yeast. HOSPITAL COURSE: She was placed on a Diflucan drip. INR did go up to over 7. Her warfarin had been stopped. During her hospitalization, she continued to have episodes of altered mental status. Consultation was made with neurology, Dr. Humphries. The patient's workup was essentially negative except for encephalopathy found on her EEG, probably from her past CVAs. During her hospital stay, she did have an episode where she became unresponsive and had weakness on the right side of her body. This resolved within an hour and was consistent with a TIA. Her INR was around 3 that day. Those symptoms had resolved but she still has episodes and had these before she came into the hospital where she wants to sleep a lot, probably from her encephalopathy. Patient does have about a 35% EF on her echocardiogram. She has had a heart attack in the past. Blood pressure has been well maintained. She is more alert today. She was also alert yesterday. Her 3rd urinalysis did show clearing of the urinary tract infection a few days ago. Her Diflucan was stopped at that point. We will get home health care to come see her and draw an INR and prothrombin time in 2 days, and send that to my office. Then I will decide when she restarts her warfarin. Otherwise, she will go back on her home medications. cc: Kike De Jesus Jr, MD
== END 2016-12-17 11:57 | disposition home health service (06) ==
LOC: SUPCPDRO → ED 14:04 → SUATTDRO 12-07 00:21 → 3S 12-07 00:21 → 3N 12-10 18:22
PROVIDERS: ADMIT Emergency Medicine; ATTEND Emergency Medicine